=== PATIENT | male | born 1980 | race Caucasian/White ===

== ENCOUNTER 2017-05-17 10:42 | Emergency (ER) | payer OTHER ==
[2017-05-17 10:45] VITALS: BP 131/72
--- NOTE | 2017-05-17 11:03 | EDM.PDOC ---
ED HPI GENERAL MEDICAL PROBLEM - General Chief Complaint: General Stated Complaint: congestion/ n&V Time Seen by Provider: 05/17/17 10:45 Source of Information: Reports: Patient. Denies: Old Records (No [facility] records available) History Limitations: Reports: No Limitations - History of Present Illness INITIAL COMMENTS - FREE TEXT/NARRATIVE: The patient drove himself to this facility via private automobile for evaluation of progressive mostly clear productive cough, nasal drainage, possible fever and chills, and some mild occasional intermittent nausea with symptoms starting about 4 days ago. Patient has not taken any antipyretics medications during the last 4-6 hours, however he did take OTC Sudafed yesterday with only minimal improvement. No known exposure to infection. He has not measured his temperature to this point. He denies any previous history of COPD or asthma, however history of tobacco use as below. No recent history of abdominal pain, heartburn, diarrhea, melena, gross hematochezia, or any food intolerance, including fatty foods, etc. with occasional nausea as above and one episode of emesis yesterday and early this morning however no nausea at this time. He denies any significant pain or other discomfort Onset: Gradual Duration: Constant, Getting Worse Location: Reports: Other (No pain) Improves with: Reports: None Worsens with: Reports: None Context: Reports: Other (As above). Denies: Sick Contact Associated Symptoms: Reports: Cough, cough w sputum, Fever/Chills, Nausea/ Vomiting. 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 Medication(s) (As above) - Related Data Allergies Allergy/AdvReac Type Severity Reaction Status Date / Time bacitracin Allergy Rash Verified 05/17/17 10:50 [From Triple Antibiotic] neomycin Allergy Rash Verified 05/17/17 10:50 [From Triple Antibiotic] polymyxin B Allergy Rash Verified 05/17/17 10:50 [From Triple Antibiotic] soybean Allergy Anaphylactic Verified 05/17/17 10:50 Shock varenicline [From Chantix] Allergy Other Verified 05/17/17 10:52 Home Meds: Home Meds Amoxicillin/Clavulanate K [Augmentin 875 MG/125 MG] 1 tab PO Q12HR #20 tablet [Rx] Guaifenesin/Pseudoephedrne HCl [Mucinex D ER Tablet] 1 each PO Q12H #20 tab.er.12h 05/17/17 [Rx] Past Medical History HEENT History: Reports: Other (See Below) Other HEENT History: 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 Denies: Asthma, COPD Musculoskeletal History: Reports: Fracture, Osteoarthritis, Other (See Below) Other Musculoskeletal History: Mandibular fracture versus infection requiring mandibular revision in December 2014 Social & Family History - Family History Respiratory: Reports: COPD, Other (See Below) Other Respiratory Family Hisory: Mother with COPD secondary to tobacco abuse Oncologic: Reports: Lung, Other (See Below) Other Oncologic Family History: Mother with fatal lung cancer likely secondary to tobacco use - Tobacco Use Smoking Status *Q: Current Every Day Smoker Tobacco Use Within Last Twelve Months: Cigarettes Years of Tobacco use: 20 Packs/Tins Daily: 0.8 (Started smoking at age 16) Smoking Cessation Information Provided To Patient: Yes ED ROS GENERAL - Review of Systems Review Of Systems: See Below Constitutional: Reports: Fever, Chills (Temperature not measured). Denies: Malaise, Weakness, Fatigue, Night Sweats, Diaphoresis, Decreased Appetite, Weight Loss, Weight Gain HEENT: Reports: Rhinitis, Sinus Problem, Throat Pain (Mild). Denies: Dental Pain, Ear Pain, Eye Discharge, Eye Pain, Glasses, Hearing Loss, Throat Swelling , Vertigo, Vision Change Respiratory: Reports: Cough, Sputum. Denies: Shortness of Breath, Wheezing, Pleuritic Chest Pain, Hemoptysis Cardiovascular: Reports: No Symptoms. Denies: Chest Pain, Blood Pressure Problem, Dyspnea on Exertion, Edema, Lightheadedness, Palpitations, Syncope Endocrine: Reports: No Symptoms. Denies: Fatigue GI/Abdominal: Reports: Nausea (As above), Vomiting (As above). Denies: Abdominal Pain, Anorexia, Black Stool, Bloody Stool, Constipation, Diarrhea, Decreased Appetite, Difficulty Swallowing, Distension, Flatus, Hematemesis, Hematochezia, Melena, Mucous in Stool, Stool Incontinence : Reports: No Symptoms. Denies: Discharge, Dysuria, Flank Pain, Hematuria, Incontinence, Urgency, Urinary Retention Musculoskeletal: Reports: No Symptoms. Denies: Neck Pain, Shoulder Pain, Arm Pain, Back Pain, Leg Pain Skin: Reports: No Symptoms. Denies: Diaphoresis, Bruising, Rash, Wound Neurological: Reports: No Symptoms. Denies: Confusion, Dizziness, Headache, Numbness, Paresthesia, Tingling, Weakness Psychiatric: Reports: No Symptoms. Denies: Agitation, Anxiety, Confusion, Depression, Hallucinations Hematologic/Lymphatic: Reports: No Symptoms Immunologic: Reports: No Symptoms ED EXAM, GENERAL - Physical Exam Exam: See Below Exam Limited By: No Limitations General Appearance: Alert, WD/WN, No Apparent Distress, Anxious (Mild) Eye Exam: Bilateral Eye: EOMI, Normal Inspection (No nystagmus), PERRL Ears: Normal External Exam, Normal Canal, Hearing Grossly Normal, Normal TMs Nose: Normal Mucosa, No Blood, Clear Rhinorrhea (Bilateralmild). No: Nasal Deformity Throat/Mouth: Normal Lips, Normal Teeth (Occasional missing teeth), Normal Voice , No Airway Compromise. No: Normal Gums, Normal Oropharynx (Trace erythema in the posterior pharynx with no pinpoint white exudates or peritonsillar abscess) , Dysphagia, Perioral Cyanosis Head: Atraumatic, Normocephalic. No: Facial Swelling, Facial Tenderness, Sinus Tenderness Neck: Normal Inspection, Supple, Non-Tender, Full Range of Motion. No: Lymphadenopathy (L), Lymphadenopathy (R), Thyromegaly Respiratory/Chest: No Respiratory Distress, No Accessory Muscle Use, Chest Non- Tender, Rhonchi (Moderate diffuse bilateral), Wheezing (Occasional bilateral). No: Rales, Pleural Rub, Retractions Cardiovascular: Normal Peripheral Pulses, Regular Rate, Rhythm, No Edema, No Gallop, No JVD, No Murmur, No Rub. No: Gallop/S3, Gallop/S4, Friction Rub Peripheral Pulses: 4+: Radial (L), Radial (R) GI/Abdominal: Normal Bowel Sounds, Soft, Non-Tender, No Organomegaly, No Distention, No Abnormal Bruit, No Mass. No: Guarding (Male) Exam: Deferred Rectal (Males) Exam: Deferred Back Exam: Normal Inspection, Full Range of Motion. No: CVA Tenderness (L), CVA Tenderness (R), Muscle Spasm Extremities: Normal Inspection, Normal Range of Motion, Non-Tender, Normal Capillary Refill, No Pedal Edema Neurological: Alert, Oriented, CN II-XII Intact, Normal Cognition, Normal Gait, No Motor/Sensory Deficits Psychiatric: Anxious (Mild). No: Depressed Mood Skin Exam: Warm, Dry, Intact, Normal Color, No Rash, Tattoo(s) (Multiple). No: Diaphoretic, Wound/Incision Lymphatic: No Adenopathy Course - Vital Signs Last Recorded V/S: Last Vital Signs Temp 36.8 C 05/17/17 10:44 Pulse 68 05/17/17 10:44 Resp 18 05/17/17 10:44 BP 131/72 05/17/17 10:44 Pulse Ox 96 05/17/17 10:44 Vital Signs - 24 hr 05/17/17 10:44 Temperature [ 36.8 C Oral] Pulse, 68 Peripheral [ Right Pulse Oximetry] Respiratory 18 Rate Blood Pressure 131/72 [Left Upper Arm ] O2 Sat by Pulse 96 Oximetry - Orders/Labs/Meds Orders: Active Orders 24 hr Category Date Time Status STREP SCRN A RAPID W CULT CONF [RM] Stat Lab 05/17/17 11:05 Results Obtain Past Medical Record [OM.PC] Routine Oth 05/17/17 11:04 Active Labs: Microbiology 05/17/17 11:05 Influenza Type A Antigen Screen - Final Nasopharyngeal Swab - Nare, Left NEGATIVE INFLUENZA A VIRUS AG Influenza Type B Antigen Screen - Final NEGATIVE INFLUENZA B VIRUS AG 05/17/17 11:05 Group A Streptococcus Rapid Screen - Final Throat Positive For Group A Strep Meds: Medications Discontinued Medications Generic Name Dose Route Start Last Admin Trade Name Freq PRN Reason Stop Dose Admin Methylprednisolone Acetate 80 mg 05/17/17 11:39 05/17/17 11:51 Depo-Medrol IM 05/17/17 11:40 80 mg ONETIME ONE Administration - Radiology Interpretation Free Text/Narrative:: None Departure - Departure Time of Disposition: 12:05 Disposition: Home, Self-Care 01 Condition: Good Clinical Impression: Tobacco abuse counseling, Strep throat URI (upper respiratory infection) Qualifiers: URI type: acute pharyngitis Pharyngitis/tonsillitis etiology: streptococcus Qualified Code(s): J02.0 - Streptococcal pharyngitis Reactive airway disease Qualifiers: Asthma severity: mild intermittent Asthma complication type: with acute exacerbation Qualified Code(s): J45.21 - Mild intermittent asthma with (acute) exacerbation - Discharge Information Prescriptions: Amoxicillin/Clavulanate K [Augmentin 875 MG/125 MG] 1 tab PO Q12HR #20 tablet Guaifenesin/Pseudoephedrne HCl [Mucinex D ER Tablet] 1 each PO Q12H #20 tab.er.12h Instructions: Chronic Obstructive Pulmonary Disease, [id number], Strep Throat , [id number], Acute Bronchitis, [id number] Referrals: PCP,None [Primary Care Provider] - Forms: ED Department Discharge, ED Return to Work/School Form Additional Instructions: 1. Follow up with your regular provider in 10-14 days as needed, if symptoms persist. 2. Tylenol 650 mg by mouth every 4 hours and/or OTC ibuprofen 2-3 tabs by mouth every 6 hours with food as directed./needed. 3. Listerine gargles four times per day, after meals and at bedtime, with additional Chloroseptic lozenges or spray as needed for 10 days and/or until symptoms resolve. 4. Stop all tobacco use FESTUS as directed/per provided information and consider contacting [employer]uit [facility], etc.. 5. Consider lung function test, PFTs, by your regular provider once you have recovered from the current infection 6. Work excuse- See Form 7. Hygiene issues as discussed 8. Recommend yearly influenza boosters and tacked your physician about a pneumonia shot/Pneumovax - Problem List & Annotations (1) URI (upper respiratory infection) SNOMED Code(s): 42709304 Code(s): J06.9 - ACUTE UPPER RESPIRATORY INFECTION, UNSPECIFIED Status: Acute Priority: High Current Visit: Yes Onset Date: ~05/13/17 Annotation /Comment:: Likely viral bronchitis with secondary reactive airway disease, although note history of tobacco use and family history of COPD. Note additional strep pharyngitis as below. Patient apparently previously had problems with severe constipation with amoxicillin, however he will be started on Augmentin therapy. IM Depo-Medrol given for inflammation of his throat and also as treatment for his reactive airway disease as below. Work excuse provided. Hygiene issues discussed Qualifiers: URI type: acute pharyngitis Pharyngitis/tonsillitis etiology: streptococcus Qualified Code(s): J02.0 - Streptococcal pharyngitis (2) Reactive airway disease SNOMED Code(s): 840764266051 Code(s): J45.909 - UNSPECIFIED ASTHMA, UNCOMPLICATED Status: Acute Priority: High Current Visit: Yes Onset Date: 05/17/17 Annotation/Comment: : Despite current bronchitis suspect probable baseline COPD secondary to his tobacco use and family history as above. PFTs recommended as per discharge instructions Qualifiers: Asthma severity: mild intermittent Asthma complication type: with acute exacerbation Qualified Code(s): J45.21 - Mild intermittent asthma with (acute ) exacerbation (3) Strep throat SNOMED Code(s): 34293505, 796931084 Code(s): J02.0 - STREPTOCOCCAL PHARYNGITIS Status: Acute Priority: High Current Visit: Yes Onset Date: ~05/13/17 Annotation/Comment:: As above (4) Tobacco abuse counseling SNOMED Code(s): 381732907, 932529543, 780350902 Code(s): Z71.6 - TOBACCO ABUSE COUNSELING Status: Chronic Priority: Medium Current Visit: Yes Annotation/Comment:: Tobacco cessation strongly encouraged with information provided - Problem List Review Problem List Initiated/Reviewed/Updated: Yes - My Orders Last 24 Hours: My Active Orders 05/17/17 11:04 Obtain Past Medical Record [OM.PC] Routine 05/17/17 11:05 STREP SCRN A RAPID W CULT CONF [RM] Stat - Assessment/Plan Last 24 Hours: My Active Orders 05/17/17 11:04 Obtain Past Medical Record [OM.PC] Routine 05/17/17 11:05 STREP SCRN A RAPID W CULT CONF [RM] Stat Assessment:: As above Plan: As above. Extensive precautions were given to the patient, who is in agreement with the treatment plan. See Patient Instructions for further treatment and plan.
[2017-05-17] MEDS ORDERED: methylPREDNISolone Acetate 80 MG/ML SDV IM ONE (11:39)
== END 2017-05-17 12:05 | disposition home or self-care (01) ==
LOC: LL.ED 10:42
DX: J45.21 Mild intermittent asthma with (acute) exacerbation (principal); J02.0 Streptococcal pharyngitis; Z88.8 Allergy status to other drugs, medicaments and biological substances; Z91.018 Allergy to other foods; Z88.1 Allergy status to other antibiotic agents; F17.210 Nicotine dependence, cigarettes, uncomplicated; Z71.6 Tobacco abuse counseling
CPT/HCPCS: 87430; 87804; 96372; 99284; J1040